=== PATIENT | female | born 1980 ===

== ENCOUNTER 2017-09-19 09:22 | Emergency (ER) | payer BC ==
[2017-09-19 09:57] VITALS: BP 110/69
--- NOTE | 2017-09-19 11:22 | RAD ---
Indication: Cough. 2 views of the chest including dual energy PA views demonstrates no mediastinal shift. Heart is of normal size and configuration. Ventriculoperitoneal shunt is noted. IMPRESSION: No active cardiopulmonary disease is noted.
--- NOTE | 2017-09-19 11:34 | UC ---
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 Hx Last Menstrual Period: mid Aug 2017 Onset/Duration: Gradual Onset, Lasting Weeks - 2 Timing: Constant Severity Initially: Mild Severity Currently: Moderate Pain Intensity: 2 Pain Scale Used: 0-10 Numeric Character: Cough: Productive Aggravating Factors: Nothing Alleviating Factors: Nothing Associated Signs And Symptoms: Positive: Negative - Allergies/Home Medications Allergies/Adverse Reactions: Allergies Allergy/AdvReac Type Severity Reaction Status Date / Time No Known Allergies Allergy Verified 09/19/17 09:57 Home Medications: Home Medications Haloperidol TAB* [Haldol TAB*] 5 mg PO BEDTIME 09/19/17 [History Confirmed 09/19] Hydrochlorothiazide TAB* [Hydrodiuril TAB*] 50 mg PO DAILY 09/19/17 [History Confirmed 09/19/17] Ibuprofen TAB* [Motrin TAB* 400 MG] 400 mg PO Q6H PRN 09/19/17 [History Confirmed 09/19/17] Sertraline* [Zoloft*] 150 mg PO DAILY 09/19/17 [History Confirmed 09/19/17] levETIRAcetam TAB* [Keppra TAB*] 1,000 mg PO BID 09/19/17 [History Confirmed 08/25] traZODone TAB* [Desyrel TAB*] 100 mg PO BEDTIME 09/19/17 [History Confirmed 08/25] PMH/Surg Hx/FS Hx/Imm Hx Neurological History: Seizures, Other - premie- cranial bleed, sz Other Neurological History: premie/intracranial bleed with some sequella - Surgical History Surgical History: Yes Surgery Procedure, Year, and Place: 2008 emergency section - Social History Alcohol Use: None Substance Use Type: None Smoking Status (MU): Never Smoked Tobacco Review of Systems Constitutional: Negative Skin: Negative Eyes: Negative ENT: Negative Respiratory: Cough Cardiovascular: Negative Gastrointestinal: Negative Genitourinary: Negative Motor: Negative Neurovascular: Negative Musculoskeletal: Negative Neurological: Negative Psychological: Negative Is Patient Immunocompromised?: No All Other Systems Reviewed And Are Negative: Yes Physical Exam Triage Information Reviewed: Yes Appearance: Well-Appearing, No Pain Distress, Well-Nourished Vital Signs: Initial Vital Signs Temp 98.4 F 09/19/17 09:45 Pulse 79 09/19/17 09:45 Resp 18 09/19/17 09:45 BP 110/69 09/19/17 09:45 Pulse Ox 97 09/19/17 09:45 Vital Signs Reviewed: Yes Eyes: Positive: Other: - nystagmus ENT: Negative: Nasal congestion, Nasal drainage, Trismus, Muffled voice, Hoarse voice Neck: Positive: Nontender, No Lymphadenopathy Respiratory: Positive: No respiratory distress, No accessory muscle use, Rhonchi Cardiovascular: Positive: RRR Musculoskeletal: Positive: Other: - left foot drop Neurological: Positive: Alert Psychological Exam: Normal Skin Exam: Normal UC Diagnostic Evaluation - Laboratory O2 Sat by Pulse Oximetry: 97 - normal/not hypoxic - Radiology Xray Interpretation: No Acute Changes Radiology Interpretation Completed By: Radiologist Respiratory Course/Dx - Differential Dx/Diagnosis Provider Diagnoses: acute bronchitis Discharge - Discharge Plan Condition: Stable Disposition: HOME Prescriptions: Amoxicillin PO (*) [Amoxicillin 875 MG (*)] 875 mg PO BID #20 tab Patient Education Materials: Acute Bronchitis (ED) Referrals: Terri CYR,gK Martínez [Primary Care Provider] - Additional Instructions: recheck early next week if not better
== END 2017-09-19 11:46 | disposition home or self-care (01) ==
LOC: UCCORT 09:22
DX: J20.9 Acute bronchitis, unspecified (principal); M21.372 Foot drop, left foot
CPT/HCPCS: 71046; 99202; G0463

== ENCOUNTER 2018-01-14 11:50 | Emergency (ER) | payer BC ==
[2018-01-14 12:28] VITALS: BP 130/75
--- NOTE | 2018-01-14 12:46 | UC ---
General HPI - HPI Summary HPI Summary: She is independent, lives alone, and cares for herself. 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 Briggs in [place]. SHe also has left foot "turning in" and trouble walking with splint that she has been using for the past two months. SHe denies vomiting, fever, neck stiffness. But for two weeks she has had more falling. Today she says she has a headache as well. No vomiting, new numbness or tingling. She has an appt with Dr. Briggs coming this Friday. She has been eating and drinking as usual and denies any reason for dehydration. - History of Current Complaint Chief Complaint: UCGeneralIllness Stated Complaint: TROUBLE WALKING Time Seen by Provider: 01/14/18 12:29 Hx Obtained From: Patient Hx Last Menstrual Period: ONSET TODAY Onset/Duration: Gradual Onset, Lasting Weeks Timing: Constant Onset Severity: Moderate Current Severity: Moderate Pain Intensity: 5 Associated Signs & Symptoms: Positive: Dizziness, Headache, In-Dwelling Medication Device. Negative: Agitation, Confusion, Cough, Decreased Responsiveness, Diarrhea, Dysuria, Decreased Oral Intake, Diaphoresis, Edema, Fever, Hematemesis, Hemoptysis, Nausea, Vomiting - Allergy/Home Medications Allergies/Adverse Reactions: Allergies Allergy/AdvReac Type Severity Reaction Status Date / Time No Known Allergies Allergy Verified 01/14/18 12:28 PMH/Surg Hx/FS Hx/Imm Hx Previously Healthy: No - CP, TIMBER PACKER shunt, chronic neuro defecits. - Surgical History Surgical History: Yes Surgery Procedure, Year, and Place: 2008 emergency section. BRAIN SHUNT 2008 - Social History Lives: Alone Alcohol Use: None Substance Use Type: None Smoking Status (MU): Heavy Every Day Tobacco Smoker Type: Cigarettes Amount Used/How Often: 1 PPD Review of Systems Constitutional: Negative Skin: Negative Genitourinary: Negative Motor: Weakness Neurological: Headache All Other Systems Reviewed And Are Negative: Yes Physical Exam Triage Information Reviewed: Yes Appearance: No Pain Distress, Well-Nourished Vital Signs: Initial Vital Signs Temp 99.3 F 01/14/18 12:16 Pulse 90 01/14/18 12:16 Resp 18 01/14/18 12:16 BP 130/75 01/14/18 12:16 Pulse Ox 98 01/14/18 12:16 Vital Signs Reviewed: Yes Eyes: Positive: Conjunctiva Clear ENT: Positive: Pharynx normal, Other - shunt is non tender and no swelling. Neck exam: Normal Neck: Positive: Supple, Nontender, No Lymphadenopathy. Negative: Nuchal Rigidity - Full rom of the neck. Respiratory: Positive: Lungs clear, Normal breath sounds, No respiratory distress, No accessory muscle use. Negative: Respiratory distress, Decreased breath sounds, Accessory muscle use, Crackles, Rhonchi, Stridor, Wheezing Cardiovascular: Positive: No Murmur, Pulses Normal, Brisk Capillary Refill Abdomen Description: Positive: No Organomegaly, Soft. Negative: CVA Tenderness (R), CVA Tenderness (L), Distended, Guarding Musculoskeletal: Positive: ROM Intact, No Edema Neurological Exam: Other - Left hand weakness which patient states is chronic. Left ankle splint. I watch her ambulate with quad cane in right hand and she has slightly wide based gait but she ambulated independently and without any signs of falling or obvious imbalance. Neurological: Positive: Alert, Muscle Tone Normal Psychological Exam: Normal Skin: Negative: rashes Course/Dx - Course Course Of Treatment: Later, mother calls and asks to speek with me. Mother states she has had increased falls this past week and it is due to her not using her left ankle brace as prescribed. Called office of Dr. Briggs who then calls back and we discussed plan. She has an appt with him on Friday. he would like to have a CT before hand. I call office back and let them know that a CT would be best before he sees her. Pt agrees with plan. - Differential Dx - Multi-Symptom Provider Diagnoses: falls. cerebral palsy. possible increased intracranial pressure. Discharge - Sign-Out/Discharge Documenting (check all that apply): Discharge/Admit/Transfer - Discharge Plan Condition: Good Disposition: HOME Patient Education Materials: Fall Prevention for Older Adults (ED), Fall Prevention (ED) Referrals: Terri CYR,Kg Martínez [Primary Care Provider] - Brigitte CYR,Vipul Mak [Medical Doctor] - Additional Instructions: Follow up with Dr. Briggs on Friday as planned. Obtain CT head before seeing him. - Billing Disposition and Condition Condition: GOOD Disposition: HOME
== END 2018-01-14 13:55 | disposition home or self-care (01) ==
LOC: UCCORT 11:50
DX: W19.XXXA Unspecified fall, initial encounter (principal); Z91.81 History of falling; Y93.9 Activity, unspecified; Y92.9 Unspecified place or not applicable; G80.9 Cerebral palsy, unspecified; Z98.2 Presence of cerebrospinal fluid drainage device
CPT/HCPCS: 99211; G0463